=== PATIENT | male | born 1960 | race Caucasian/White ===

== ENCOUNTER → 2019-03-17 | Outpatient (RCR) | payer OTHER | LOC: M PT 02-20 14:03 | PROVIDERS: ATTEND Internal Medicine | DX: Z51.89 Encounter for other specified aftercare (principal); M43.16 Spondylolisthesis, lumbar region ==

== ENCOUNTER 2019-04-10 13:44 | Outpatient (RCR) | payer OTHER | END 2019-04-17 | LOC: M PT 13:44 | PROVIDERS: ATTEND Internal Medicine | DX: Z51.89 Encounter for other specified aftercare (principal); M43.17 Spondylolisthesis, lumbosacral region ==

== ENCOUNTER 2019-04-24 13:42 | Outpatient (RCR) | payer OTHER | END 2019-05-17 | LOC: M PT 13:42 | PROVIDERS: ATTEND Internal Medicine | DX: M43.17 Spondylolisthesis, lumbosacral region (principal) ==

== ENCOUNTER → 2020-09-10 | Outpatient (CLI) | payer OTHER, SELFPAY ==
[~2020-09-10] MED LIST: ASPI81TA26 PO; CLON1TAB17 PO; CLON1TAB8 PO; CYCL-707 PO; D31000TA PO; FLOM0.4C39 PO; GABA-283 PO; LOPI600T PO; MELO15TA28 PO; PARO20TA4 PO; PRAZ2CAP PO; ROSU40TA4 PO; SERO1TAB2 PO; SERO200T PO; SYMB16INH INH; SYNT25TA PO; TRAM50TA2 PO; VITMTA PO; ZALE5CA PO
== END ==
LOC: M LABSMTC 11:56
PROVIDERS: ATTEND Anesthesiology
DX: Z01.812 Encounter for preprocedural laboratory examination (principal); Z20.822 Contact with and (suspected) exposure to COVID-19

== ENCOUNTER → 2020-10-08 | Outpatient (CLI) | payer OTHER, SELFPAY | LOC: M LABSMTC 10:51 | PROVIDERS: ATTEND Anesthesiology | DX: Z01.818 Encounter for other preprocedural examination (principal); Z20.822 Contact with and (suspected) exposure to COVID-19 ==

== ENCOUNTER → 2020-10-22 | Outpatient (CLI) | payer OTHER, SELFPAY | LOC: M LABSMTC 11:50 | PROVIDERS: ATTEND Anesthesiology | DX: Z01.812 Encounter for preprocedural laboratory examination (principal); Z20.822 Contact with and (suspected) exposure to COVID-19 ==

== ENCOUNTER → 2020-11-19 | Outpatient (CLI) | payer OTHER, SELFPAY | LOC: M LABSMTC 10:33 | PROVIDERS: ATTEND Anesthesiology | DX: Z01.818 Encounter for other preprocedural examination (principal); Z20.822 Contact with and (suspected) exposure to COVID-19 ==

== ENCOUNTER → 2022-03-30 | Outpatient (CLI) | payer OTHER | LOC: M PLARAD 12:54 | PROVIDERS: ATTEND Internal Medicine | DX: M51.26 Other intervertebral disc displacement, lumbar region (principal); M99.53 Intervertebral disc stenosis of neural canal of lumbar region; M43.16 Spondylolisthesis, lumbar region ==

== ENCOUNTER → 2023-01-26 | Outpatient (CLI) | payer OTHER ==
[~2023-01-26] MED LIST changes: -GABA-283 PO; +GABA-284 PO
== END ==
LOC: M PAIN 13:00
PROVIDERS: ATTEND Nurse Practitioner Family
DX: M51.16 Intervertebral disc disorders with radiculopathy, lumbar region (principal); G25.81 Restless legs syndrome; F43.10 Post-traumatic stress disorder, unspecified; M54.2 Cervicalgia; K21.9 Gastro-esophageal reflux disease without esophagitis; F41.9 Anxiety disorder, unspecified; F42.9 Obsessive-compulsive disorder, unspecified; E78.00 Pure hypercholesterolemia, unspecified; F31.9 Bipolar disorder, unspecified; F32.A Depression, unspecified; Z79.82 Long term (current) use of aspirin; Z79.890 Hormone replacement therapy; Z79.899 Other long term (current) drug therapy

== ENCOUNTER 2023-03-20 14:58 | Emergency (ER) | payer MEDICARE ==
[~2023-03-20] VITALS: Ht 175.3 cm; Wt 78.1 kg
[2023-03-20 14:58] VITALS: BP 138/75; TEMP 99.1; O2SAT 95
[~2023-03-20 14:58] MED LIST changes: +HOLTER MONITOR XX
[2023-03-20 16:02] LABS: BASO % 0.5 % (0.0-1.0); EOS % 0.1 % (0.0-3.0); HEMATOCRIT 44.2 % (42.0-52.0); LYMPH # 1.1 10^3/uL (1.5-5.0); LYMPH % 13.4 % (24.0-44.0); MEAN CORPUSCULAR HGB CONC 33.9 g/dl (32.0-36.5); MEAN CORPUSCULAR VOLUME 91.3 fl (80.0-96.0); MONO # 0.5 10^3/uL (0.0-0.8); MONO % 5.7 % (2.0-8.0); NEUTROPHILS # 6.6 10^3/uL (1.5-8.5); NEUTROPHILS % 80.1 % (36.0-66.0); PLATELET COUNT, AUTOMATED 166 10^3/uL (150-450); RED BLOOD COUNT 4.84 10^6/uL (4.30-6.10); WHITE BLOOD COUNT 8.2 10^3/uL (4.0-10.0)
[2023-03-20 16:35] LABS: BLOOD UREA NITROGEN 28 MG/DL (9-23); CALCIUM LEVEL 9.5 MG/DL (8.3-10.6); CARBON DIOXIDE LEVEL 26 MMOL/L (20-31); CHLORIDE LEVEL 105 MMOL/L (98-107); CK-MB VALUE MASS < 1.0 NG/ML (<3.6); CPK CREATINE PHOSPHOKINASE 73 U/L (46-171); GLOMERULAR FILTRATION RATE > 60.0 (>49); GLUCOSE, FASTING 166 MG/DL (74-106); MB/CK RELATIVE INDEX 1.36 (< OR =4); POTASSIUM SERUM 3.9 MMOL/L (3.5-5.1); SODIUM LEVEL 139 MMOL/L (136-145)
[2023-03-20 18:27] LABS: CK-MB VALUE MASS 1.1 NG/ML (<3.6)
[2023-03-20 18:29] LABS: MB/CK RELATIVE INDEX 1.48 (< OR =4)
[2023-03-20 20:33] LABS: CK-MB VALUE MASS < 1.0 NG/ML (<3.6)
[2023-03-20 20:38] LABS: CPK CREATINE PHOSPHOKINASE 70 U/L (46-171); MB/CK RELATIVE INDEX 1.42 (< OR =4)
== END 2023-03-20 21:47 | disposition home or self-care (01) ==
LOC: M ED 14:58
DX: R00.2 Palpitations (principal); Z79.899 Other long term (current) drug therapy

== ENCOUNTER 2023-04-09 12:01 | Inpatient (IN) | payer MEDICARE, OTHER ==
[~2023-04-09] VITALS: Ht 175.3 cm; Wt 86.0 kg
[~2023-04-09 12:01] MED LIST changes: +BUPR-71 PO; +BUPR150T12 PO; +CELE0.09 PO; +ECOT81TA5 PO; +EZET10TA21 PO; +FAMO40TA3 PO; +FENO145T7 PO; +FLON1SPR; +JARD1TAB3 PO; +LEVO50CA PO; +MM S100C PO; +OMEP40CA4 PO; +PSYLPOW4 XX; +SILD100T PO; +SIME180C25 PO
[2023-04-09] MEDS ORDERED: LORazepam 2 MG TAB PO STA (13:46)
[2023-04-09] MEDS ORDERED: MED REC IN PROGRESS XX SCH (14:05)
[2023-04-09 14:34] LABS: BASO # 0.1 10^3/uL (0.0-0.2); EOS # 0.1 10^3/uL (0.0-0.5); HEMATOCRIT 44.2 % (42.0-52.0); HEMOGLOBIN 14.5 g/dl (13.5-17.5); LYMPH # 1.1 10^3/uL (1.5-5.0); LYMPH % 18.9 % (24.0-44.0); MEAN CORPUSCULAR HEMOGLOBIN 30.6 pg (27.0-33.0); MEAN CORPUSCULAR HGB CONC 32.8 g/dl (32.0-36.5); MEAN CORPUSCULAR VOLUME 93.2 fl (80.0-96.0); MONO # 0.8 10^3/uL (0.0-0.8); MONO % 13.4 % (2.0-8.0); NEUTROPHILS # 3.8 10^3/uL (1.5-8.5); NEUTROPHILS % 65.4 % (36.0-66.0); PLATELET COUNT, AUTOMATED 146 10^3/uL (150-450); RED BLOOD COUNT 4.74 10^6/uL (4.30-6.10); WHITE BLOOD COUNT 5.9 10^3/uL (4.0-10.0)
[2023-04-09] MEDS ORDERED: CLON2TAB14 PO (19:24)
[2023-04-09] MEDS ORDERED: HOME MED LIST COMPLETE! XX SCH (19:30)
[2023-04-09] MEDS ORDERED: traZODone 50 MG TAB PO PRN (22:05)
[2023-04-09] MEDS ORDERED: MOM 30ML SUSPENSION UDC PO PRN (22:05)
[2023-04-09] MEDS ORDERED: IBUPROFEN 400MG TAB PO PRN (22:05)
[2023-04-09] MEDS ORDERED: MAALOX 30 ML SUSP *UDC PO PRN (22:05)
[2023-04-09] MEDS ORDERED: FAMOTIDINE 20 MG TAB PO PRN ×2 (22:10→22:30)
[2023-04-09] MEDS ORDERED: CYCLOBENZAPRINE 10MG TABLET PO PRN ×2 (22:10→22:30)
[2023-04-09] MEDS ORDERED: OMEPRAZOLE 20MG CAP PO PRN ×2 (22:10→22:30)
[2023-04-09] MEDS ORDERED: traMADol 50 MG TAB PO PRN (22:10)
[2023-04-09] MEDS ORDERED: SYMBICORT 160/4.5MCG INHALER 6GM INH ONE (23:45)
[2023-04-09] MEDS ORDERED: ROSUVASTATIN 10 MG TAB (CRESTOR) PO ONE (23:45)
[2023-04-09] MEDS ORDERED: MULTIVITAMINS/MINERALS THERAP 1 TAB PO ONE (23:45)
[2023-04-09] MEDS ORDERED: GABAPENTIN 400MG CAP PO ONE (23:45)
[2023-04-09] MEDS ORDERED: DOCUSATE SODIUM 100MG CAPSULE PO ONE (23:45)
[2023-04-09] MEDS ORDERED: clonazePAM 1 MG TAB PO ONE (23:45)
[2023-04-10] MEDS: POLYVINYL ALCOHOL OPHTH SOLN 15ML (LIQUITEARS) OU PRN ×4 (00:46→23:43)
[2023-04-10 01:08] VITALS: BP 135/69; TEMP 98; O2SAT 97
[2023-04-10] MEDS: LEVOTHYROXINE 50MCG TABLET (0.05MG) PO SCH (05:55)
[2023-04-10] MEDS ORDERED: LEVOTHYROXINE 50MCG TABLET (0.05MG) PO SCH (06:00)
[2023-04-10 06:38] VITALS: BP 118/65; TEMP 97.8; O2SAT 97
[2023-04-10 08:28] LABS: AST/SGOT 31 U/L (5-40); BLOOD UREA NITROGEN 28 MG/DL (7-21); CALCIUM LEVEL 10.3 MG/DL (8.8-10.2); CARBON DIOXIDE LEVEL 28 MEQ/L (22-30); CHLORIDE LEVEL 103 MEQ/L (98-107); GLOMERULAR FILTRATION RATE > 60.0 (>49); GLUCOSE, FASTING 116 MG/DL; POTASSIUM SERUM 4.3 MEQ/L (3.6-5.0); SODIUM LEVEL 140 MEQ/L (134-153)
[2023-04-10 08:29] LABS: ALBUMIN 4.1 G/DL (3.9-5.0); ALKALINE PHOSPHATASE 57 U/L (40-129); ALT/SGPT 31 U/L (1-41); BILIRUBIN,DIRECT < 0.2 MG/DL (0.1-0.4); BILIRUBIN,TOTAL < 0.7 MG/DL (0.2-1.3); ETHYL ALCOHOL (ETHANOL) 0.01 % (0.00-0.01); TOTAL PROTEIN 6.6 G/DL (6.3-8.2)
[2023-04-10 08:30] LABS: THYROID STIMULATING HORMONE 2.51 UIU/ML (0.47-5.01)
[2023-04-10 08:32] LABS: AMPHETAMINES LEVEL URINE NEGATIVE (NEGATIVE); BARBITURATES URINE NEGATIVE (NEGATIVE); BENZODIAZEPINES URINE POSITIVE (NEGATIVE); CANNABINOIDS URINE NEGATIVE (NEGATIVE); COCAINE METABOLITE URINE NEGATIVE (NEGATIVE); OPIATES URINE NEGATIVE (NEGATIVE); PHENCYCLIDINE URINE NEGATIVE (NEGATIVE)
[2023-04-10] MEDS: FLUTICASONE PROP 0.05% NASAL SPRAY 16 GM (FLONASE) SCH (08:55)
[2023-04-10] MEDS: ASPIRIN 81MG ENTERIC TABLET PO SCH (08:56)
[2023-04-10] MEDS: FENOFIBRATE 145MG TABLET (TRICOR) PO SCH (08:56)
[2023-04-10] MEDS: MULTIVITAMINS/MINERALS THERAP 1 TAB PO SCH ×2 (08:57→20:08)
[2023-04-10] MEDS: traMADol 50 MG TAB PO PRN (08:58)
[2023-04-10] MEDS: buPROPion **SR TABLET** (ZYBAN) 150MG PO SCH (08:59)
[2023-04-10] MEDS: EZETIMIBE 10MG TABLET (ZETIA) PO SCH (08:59)
[2023-04-10] MEDS: TAMSULOSIN 0.4 MG CAP PO SCH (08:59)
[2023-04-10] MEDS ORDERED: ASPIRIN 81MG ENTERIC TABLET PO SCH (09:00)
[2023-04-10] MEDS ORDERED: DOCUSATE SODIUM 100MG CAPSULE PO SCH ×2 (09:00)
[2023-04-10] MEDS ORDERED: buPROPion **SR TABLET** (ZYBAN) 150MG PO SCH (09:00)
[2023-04-10] MEDS ORDERED: SYMBICORT 160/4.5MCG INHALER 6GM INH SCH (09:00)
[2023-04-10] MEDS ORDERED: FENOFIBRATE 145MG TABLET (TRICOR) PO SCH (09:00)
[2023-04-10] MEDS ORDERED: TAMSULOSIN 0.4 MG CAP PO SCH (09:00)
[2023-04-10] MEDS ORDERED: MULTIVITAMINS/MINERALS THERAP 1 TAB PO SCH (09:00)
[2023-04-10] MEDS ORDERED: EZETIMIBE 10MG TABLET (ZETIA) PO SCH (09:00)
[2023-04-10] MEDS ORDERED: FLUTICASONE PROP 0.05% NASAL SPRAY 16 GM (FLONASE) SCH (09:00)
[2023-04-10] MEDS: SYMBICORT 160/4.5MCG INHALER 6GM INH SCH ×2 (09:01→20:07)
[2023-04-10] MEDS: diphenhydrAMINE 25MG CAP PO PRN ×2 (09:08→23:42)
[2023-04-10] MEDS: MIRALAX *UNIT DOSE* 17GM PACKET PO SCH (12:37)
[2023-04-10] MEDS: ALBUTEROL 90 MCG/ACT 8GM HFA INHALER INH PRN (12:43)
[2023-04-10] MEDS: DAPAGLIFLOZIN PROPANEDIOL 10MG TABLET (FARXIGA) PO SCH (13:03)
[2023-04-10 16:20] VITALS: BP 117/65; TEMP 98.4; O2SAT 96
[2023-04-10] MEDS: GABAPENTIN 400MG CAP PO SCH (20:08)
[2023-04-10] MEDS: ROSUVASTATIN 10 MG TAB (CRESTOR) PO SCH (20:08)
[2023-04-10] MEDS: SENOKOT S TAB PO SCH (20:09)
[2023-04-10] MEDS: clonazePAM 1 MG TAB PO SCH (20:09)
[2023-04-10] MEDS: ACETAMINOPHEN TAB 650MG DOSE (2X325MG) PO PRN (20:30)
[2023-04-10] MEDS ORDERED: clonazePAM 1 MG TAB PO SCH (21:00)
[2023-04-10] MEDS ORDERED: ROSUVASTATIN 10 MG TAB (CRESTOR) PO SCH (21:00)
[2023-04-10] MEDS ORDERED: GABAPENTIN 400MG CAP PO SCH (21:00)
[2023-04-11] MEDS: LEVOTHYROXINE 50MCG TABLET (0.05MG) PO SCH (05:38)
[2023-04-11 06:45] VITALS: BP 110/66; TEMP 97.2; O2SAT 95
[2023-04-11 07:37] LABS: CHOLESTEROL RISK RATIO 2.18 (<5); HDL CHOLESTEROL 39.3 MG/DL (>40); LDL CHOLESTEROL 35.9 MG/DL (<100); NON-HDL-C 46.7 MG/DL
[2023-04-11] MEDS: MULTIVITAMINS/MINERALS THERAP 1 TAB PO SCH ×2 (08:25→21:21)
[2023-04-11] MEDS: buPROPion **SR TABLET** (ZYBAN) 150MG PO SCH (08:25)
[2023-04-11] MEDS: ACETAMINOPHEN TAB 650MG DOSE (2X325MG) PO PRN ×2 (08:26→21:21)
[2023-04-11] MEDS: DAPAGLIFLOZIN PROPANEDIOL 10MG TABLET (FARXIGA) PO SCH (08:26)
[2023-04-11] MEDS: FENOFIBRATE 145MG TABLET (TRICOR) PO SCH (08:26)
[2023-04-11] MEDS: ASPIRIN 81MG ENTERIC TABLET PO SCH (08:26)
[2023-04-11] MEDS: EZETIMIBE 10MG TABLET (ZETIA) PO SCH (08:26)
[2023-04-11] MEDS: POLYVINYL ALCOHOL OPHTH SOLN 15ML (LIQUITEARS) OU PRN ×2 (08:27→21:20)
[2023-04-11] MEDS: QUEtiapine FUMARATE 100 MG TAB PO SCH ×2 (08:27→21:21)
[2023-04-11] MEDS: TAMSULOSIN 0.4 MG CAP PO SCH (08:27)
[2023-04-11] MEDS: FLUTICASONE PROP 0.05% NASAL SPRAY 16 GM (FLONASE) SCH (08:27)
[2023-04-11] MEDS: SYMBICORT 160/4.5MCG INHALER 6GM INH SCH ×2 (08:28→21:20)
[2023-04-11] MEDS: SENOKOT S TAB PO SCH (08:28)
[2023-04-11] MEDS: MIRALAX *UNIT DOSE* 17GM PACKET PO SCH (08:28)
[2023-04-11] MEDS: SENOKOT S TAB PO PRN (12:24)
[2023-04-11 16:29] VITALS: BP 124/70; TEMP 98.3; O2SAT 94
[2023-04-11] MEDS: BENZONATATE 100MG CAPSULE PO PRN (16:45)
[2023-04-11] MEDS: clonazePAM 1 MG TAB PO SCH (21:20)
[2023-04-11] MEDS: GABAPENTIN 400MG CAP PO SCH (21:20)
[2023-04-11] MEDS: diphenhydrAMINE 25MG CAP PO PRN (21:21)
[2023-04-11] MEDS: ROSUVASTATIN 10 MG TAB (CRESTOR) PO SCH (21:21)
[2023-04-11] MEDS ORDERED: QUEtiapine FUMARATE 100 MG TAB PO ONE (21:50)
[2023-04-12] MEDS: LEVOTHYROXINE 50MCG TABLET (0.05MG) PO SCH (05:59)
[2023-04-12 06:17] VITALS: BP 122/77; TEMP 97.6; O2SAT 95
[2023-04-12] MEDS: SYMBICORT 160/4.5MCG INHALER 6GM INH SCH ×2 (08:39→21:38)
[2023-04-12] MEDS: TAMSULOSIN 0.4 MG CAP PO SCH (08:39)
[2023-04-12] MEDS: QUEtiapine FUMARATE 100 MG TAB PO SCH (08:39)
[2023-04-12] MEDS: ASPIRIN 81MG ENTERIC TABLET PO SCH (08:39)
[2023-04-12] MEDS: buPROPion **SR TABLET** (ZYBAN) 150MG PO SCH (08:39)
[2023-04-12] MEDS: EZETIMIBE 10MG TABLET (ZETIA) PO SCH (08:39)
[2023-04-12] MEDS: FENOFIBRATE 145MG TABLET (TRICOR) PO SCH (08:39)
[2023-04-12] MEDS: DAPAGLIFLOZIN PROPANEDIOL 10MG TABLET (FARXIGA) PO SCH (08:39)
[2023-04-12] MEDS: MULTIVITAMINS/MINERALS THERAP 1 TAB PO SCH ×2 (08:39→21:35)
[2023-04-12 08:40] LABS: SALICYLATE LEVEL < 3.0 MG/DL (2.0-20.0)
[2023-04-12] MEDS: FLUTICASONE PROP 0.05% NASAL SPRAY 16 GM (FLONASE) SCH (08:40)
[2023-04-12] MEDS: MIRALAX *UNIT DOSE* 17GM PACKET PO SCH (08:40)
[2023-04-12] MEDS: SENOKOT S TAB PO PRN (08:42)
[2023-04-12] MEDS: POLYVINYL ALCOHOL OPHTH SOLN 15ML (LIQUITEARS) OU PRN ×2 (08:45→21:41)
[2023-04-12] MEDS: ACETAMINOPHEN TAB 650MG DOSE (2X325MG) PO PRN (08:46)
[2023-04-12] MEDS: BENZONATATE 100MG CAPSULE PO PRN ×2 (08:50→17:06)
[2023-04-12] MEDS: traMADol 50 MG TAB PO PRN (17:07)
[2023-04-12 18:33] VITALS: BP 129/79; TEMP 97.1
[2023-04-12] MEDS: clonazePAM 1 MG TAB PO SCH (21:35)
[2023-04-12] MEDS: GABAPENTIN 400MG CAP PO SCH (21:35)
[2023-04-12] MEDS: QUEtiapine FUMARATE 200 MG TAB PO SCH (21:35)
[2023-04-12] MEDS: ROSUVASTATIN 10 MG TAB (CRESTOR) PO SCH (21:36)
[2023-04-13 06:02] VITALS: BP 112/67; TEMP 98.2; O2SAT 95
[2023-04-13] MEDS: LEVOTHYROXINE 50MCG TABLET (0.05MG) PO SCH (06:02)
[2023-04-13] MEDS: FLUTICASONE PROP 0.05% NASAL SPRAY 16 GM (FLONASE) SCH (08:33)
[2023-04-13] MEDS: SYMBICORT 160/4.5MCG INHALER 6GM INH SCH ×2 (08:33→20:42)
[2023-04-13] MEDS: MIRALAX *UNIT DOSE* 17GM PACKET PO SCH (08:34)
[2023-04-13] MEDS: EZETIMIBE 10MG TABLET (ZETIA) PO SCH (08:35)
[2023-04-13] MEDS: ASPIRIN 81MG ENTERIC TABLET PO SCH (08:35)
[2023-04-13] MEDS: FENOFIBRATE 145MG TABLET (TRICOR) PO SCH (08:35)
[2023-04-13] MEDS: DAPAGLIFLOZIN PROPANEDIOL 10MG TABLET (FARXIGA) PO SCH (08:35)
[2023-04-13] MEDS: MULTIVITAMINS/MINERALS THERAP 1 TAB PO SCH ×2 (08:35→20:43)
[2023-04-13] MEDS: buPROPion **SR TABLET** (ZYBAN) 150MG PO SCH (08:35)
[2023-04-13] MEDS: TAMSULOSIN 0.4 MG CAP PO SCH (08:36)
[2023-04-13] MEDS: POLYVINYL ALCOHOL OPHTH SOLN 15ML (LIQUITEARS) OU PRN ×2 (08:38→20:48)
[2023-04-13] MEDS: BENZONATATE 100MG CAPSULE PO PRN (08:38)
[2023-04-13] MEDS: ACETAMINOPHEN TAB 650MG DOSE (2X325MG) PO PRN (08:43)
[2023-04-13] MEDS ORDERED: QUEtiapine FUMARATE 100 MG TAB PO SCH (09:00)
[2023-04-13] MEDS: ALBUTEROL 90 MCG/ACT 8GM HFA INHALER INH PRN (13:16)
[2023-04-13 16:45] VITALS: BP 140/72; TEMP 98.2; O2SAT 93
[2023-04-13] MEDS: ROSUVASTATIN 10 MG TAB (CRESTOR) PO SCH (20:43)
[2023-04-13] MEDS: clonazePAM 1 MG TAB PO SCH (20:43)
[2023-04-13] MEDS: QUEtiapine FUMARATE 200 MG TAB PO SCH (20:43)
[2023-04-13] MEDS: GABAPENTIN 400MG CAP PO SCH (20:43)
[2023-04-14] MEDS: LEVOTHYROXINE 50MCG TABLET (0.05MG) PO SCH (05:45)
[2023-04-14 06:34] VITALS: BP 103/65; TEMP 97.8; O2SAT 96
[2023-04-14] MEDS: SYMBICORT 160/4.5MCG INHALER 6GM INH SCH ×2 (08:46→21:25)
[2023-04-14] MEDS: MIRALAX *UNIT DOSE* 17GM PACKET PO SCH (08:47)
[2023-04-14] MEDS: EZETIMIBE 10MG TABLET (ZETIA) PO SCH (08:47)
[2023-04-14] MEDS: POLYVINYL ALCOHOL OPHTH SOLN 15ML (LIQUITEARS) OU PRN ×2 (08:47→21:23)
[2023-04-14] MEDS: ASPIRIN 81MG ENTERIC TABLET PO SCH (08:47)
[2023-04-14] MEDS: FLUTICASONE PROP 0.05% NASAL SPRAY 16 GM (FLONASE) SCH (08:47)
[2023-04-14] MEDS: FENOFIBRATE 145MG TABLET (TRICOR) PO SCH (08:47)
[2023-04-14] MEDS: DAPAGLIFLOZIN PROPANEDIOL 10MG TABLET (FARXIGA) PO SCH (08:48)
[2023-04-14] MEDS: TAMSULOSIN 0.4 MG CAP PO SCH (08:48)
[2023-04-14] MEDS: MULTIVITAMINS/MINERALS THERAP 1 TAB PO SCH ×2 (08:48→21:21)
[2023-04-14] MEDS: buPROPion **SR TABLET** (ZYBAN) 150MG PO SCH (08:48)
[2023-04-14] MEDS: SENOKOT S TAB PO PRN (08:48)
[2023-04-14] MEDS: traMADol 50 MG TAB PO PRN (08:56)
[2023-04-14 12:01] VITALS: BP 103/65; TEMP 97.8; O2SAT 96
[2023-04-14 16:23] VITALS: BP 131/71; TEMP 98; O2SAT 95
[2023-04-14] MEDS: QUEtiapine FUMARATE 200 MG TAB PO SCH (21:21)
[2023-04-14] MEDS: diphenhydrAMINE 25MG CAP PO PRN (21:22)
[2023-04-14] MEDS: ACETAMINOPHEN TAB 650MG DOSE (2X325MG) PO PRN (21:22)
[2023-04-14] MEDS: ROSUVASTATIN 10 MG TAB (CRESTOR) PO SCH (21:23)
[2023-04-14] MEDS: clonazePAM 1 MG TAB PO SCH (21:23)
[2023-04-14] MEDS: GABAPENTIN 400MG CAP PO SCH (21:23)
[2023-04-15] MEDS: LEVOTHYROXINE 50MCG TABLET (0.05MG) PO SCH (05:46)
[2023-04-15 07:08] VITALS: BP 142/85; TEMP 97; O2SAT 94
[2023-04-15] MEDS: MIRALAX *UNIT DOSE* 17GM PACKET PO SCH (08:14)
[2023-04-15] MEDS: FLUTICASONE PROP 0.05% NASAL SPRAY 16 GM (FLONASE) SCH (08:15)
[2023-04-15] MEDS: SENOKOT S TAB PO PRN (08:15)
[2023-04-15] MEDS: TAMSULOSIN 0.4 MG CAP PO SCH (08:16)
[2023-04-15] MEDS: SYMBICORT 160/4.5MCG INHALER 6GM INH SCH ×2 (08:16→21:34)
[2023-04-15] MEDS: buPROPion **SR TABLET** (ZYBAN) 150MG PO SCH (08:16)
[2023-04-15] MEDS: MULTIVITAMINS/MINERALS THERAP 1 TAB PO SCH ×2 (08:16→21:31)
[2023-04-15] MEDS: ASPIRIN 81MG ENTERIC TABLET PO SCH (08:16)
[2023-04-15] MEDS: EZETIMIBE 10MG TABLET (ZETIA) PO SCH (08:17)
[2023-04-15] MEDS: DAPAGLIFLOZIN PROPANEDIOL 10MG TABLET (FARXIGA) PO SCH (08:17)
[2023-04-15] MEDS: FENOFIBRATE 145MG TABLET (TRICOR) PO SCH (08:17)
[2023-04-15] MEDS: ACETAMINOPHEN TAB 650MG DOSE (2X325MG) PO PRN (08:19)
[2023-04-15 11:21] VITALS: BP 142/85; TEMP 97; O2SAT 94
[2023-04-15 16:07] VITALS: BP 122/63; TEMP 98.4; O2SAT 94
[2023-04-15] MEDS: QUEtiapine FUMARATE 200 MG TAB PO SCH ×2 (21:00→23:13)
[2023-04-15] MEDS: GABAPENTIN 400MG CAP PO SCH (21:31)
[2023-04-15] MEDS: clonazePAM 1 MG TAB PO SCH (21:31)
[2023-04-15] MEDS: ROSUVASTATIN 10 MG TAB (CRESTOR) PO SCH (21:32)
[2023-04-15] MEDS: POLYVINYL ALCOHOL OPHTH SOLN 15ML (LIQUITEARS) OU PRN (21:34)
[2023-04-15] MEDS: diphenhydrAMINE 25MG CAP PO PRN (21:36)
[2023-04-15] MEDS: traMADol 50 MG TAB PO PRN (22:31)
[2023-04-16] MEDS: LEVOTHYROXINE 50MCG TABLET (0.05MG) PO SCH (05:49)
[2023-04-16 06:41] VITALS: BP 105/55; TEMP 97.4; O2SAT 95
[2023-04-16] MEDS: MIRALAX *UNIT DOSE* 17GM PACKET PO SCH (09:00)
[2023-04-16] MEDS: DAPAGLIFLOZIN PROPANEDIOL 10MG TABLET (FARXIGA) PO SCH (09:29)
[2023-04-16] MEDS: ASPIRIN 81MG ENTERIC TABLET PO SCH (09:29)
[2023-04-16] MEDS: FLUTICASONE PROP 0.05% NASAL SPRAY 16 GM (FLONASE) SCH (09:29)
[2023-04-16] MEDS: MULTIVITAMINS/MINERALS THERAP 1 TAB PO SCH (09:29)
[2023-04-16] MEDS: FENOFIBRATE 145MG TABLET (TRICOR) PO SCH (09:29)
[2023-04-16] MEDS: EZETIMIBE 10MG TABLET (ZETIA) PO SCH (09:29)
[2023-04-16] MEDS: TAMSULOSIN 0.4 MG CAP PO SCH (09:29)
[2023-04-16] MEDS: buPROPion **SR TABLET** (ZYBAN) 150MG PO SCH (09:29)
[2023-04-16] MEDS: traMADol 50 MG TAB PO PRN (09:31)
[2023-04-16] MEDS: SYMBICORT 160/4.5MCG INHALER 6GM INH SCH (09:32)
[2023-04-16] MEDS ORDERED: QUET200T2 PO (12:25)
[2023-04-16] MEDS ORDERED: ARTIDRO2 OU (12:25)
[2023-04-16] MEDS ORDERED: VITMTA PO (12:25)
[2023-04-16] MEDS ORDERED: MIRA1POW3 PO (12:25)
== END 2023-04-16 14:09 | disposition home or self-care (01) | DRG 885 ==
LOC: M ED 12:01 → M ED INP 22:04 → M PSY 22:56
PROVIDERS: ADMIT Student in an Organized Health Care Education/Training Program; ATTEND Student in an Organized Health Care Education/Training Program
DX: F31.9 Bipolar disorder, unspecified (principal); R45.851 Suicidal ideations; F43.10 Post-traumatic stress disorder, unspecified; F41.9 Anxiety disorder, unspecified; F42.9 Obsessive-compulsive disorder, unspecified; E03.9 Hypothyroidism, unspecified; K59.00 Constipation, unspecified; E11.9 Type 2 diabetes mellitus without complications; J45.909 Unspecified asthma, uncomplicated; K21.9 Gastro-esophageal reflux disease without esophagitis; E78.5 Hyperlipidemia, unspecified; N40.1 Benign prostatic hyperplasia with lower urinary tract symptoms; M51.16 Intervertebral disc disorders with radiculopathy, lumbar region; Z62.810 Personal history of physical and sexual abuse in childhood; Z79.82 Long term (current) use of aspirin; Z79.890 Hormone replacement therapy; Z79.899 Other long term (current) drug therapy; Z20.822 Contact with and (suspected) exposure to COVID-19

== ENCOUNTER 2023-04-20 08:15 | Day surgery (SDC) | payer OTHER, MEDICARE ==
[~2023-04-20] VITALS: Ht 175.3 cm; Wt 78.7 kg
[~2023-04-20 08:15] MED LIST changes: +ARTIDRO2 OU; +CLON2TAB14 PO; +MIRA1POW3 PO; +NS 1,000 ML IV ONE; +QUET200T2 PO; +fentaNYL 100 MCG/2 ML INJECTION As Ordered ONE; +propofoL 200 MG/20 ML VIAL As Ordered ONE
[2023-04-20 09:44] VITALS: TEMP 97.7
[2023-04-20 10:05] VITALS: BP 127/73; O2SAT 94
== END 2023-04-20 10:10 | disposition home or self-care (01) ==
LOC: M OPP 08:15
PROVIDERS: ATTEND Surgery
DX: Z12.11 Encounter for screening for malignant neoplasm of colon (principal); K64.0 First degree hemorrhoids; K29.70 Gastritis, unspecified, without bleeding; E11.9 Type 2 diabetes mellitus without complications; Z79.02 Long term (current) use of antithrombotics/antiplatelets; Z79.52 Long term (current) use of systemic steroids; Z79.84 Long term (current) use of oral hypoglycemic drugs; Z79.891 Long term (current) use of opiate analgesic; Z79.899 Other long term (current) drug therapy
CPT/HCPCS: 45378; 88305; J3010

== ENCOUNTER 2023-05-12 15:47 | Emergency (ER) | payer MEDICARE, OTHER ==
[~2023-05-12] VITALS: Ht 175.3 cm; Wt 78.6 kg
[~2023-05-12 15:47] MED LIST changes: -NS 1,000 ML IV ONE; -fentaNYL 100 MCG/2 ML INJECTION As Ordered ONE; -propofoL 200 MG/20 ML VIAL As Ordered ONE
[2023-05-12 19:05] VITALS: BP 125/71; TEMP 98; O2SAT 97
== END 2023-05-12 19:05 | disposition home or self-care (01) ==
LOC: M ED 15:47
DX: G47.00 Insomnia, unspecified (principal); F32.A Depression, unspecified; F31.9 Bipolar disorder, unspecified; F43.10 Post-traumatic stress disorder, unspecified; F42.9 Obsessive-compulsive disorder, unspecified; E03.9 Hypothyroidism, unspecified; N40.0 Benign prostatic hyperplasia without lower urinary tract symptoms; J45.909 Unspecified asthma, uncomplicated

== ENCOUNTER 2023-05-14 10:51 | Inpatient (IN) | payer MEDICARE, OTHER ==
[~2023-05-14] VITALS: Ht 175.3 cm; Wt 78.6 kg
[2023-05-14] MEDS ORDERED: MED REC IN PROGRESS XX SCH (14:40)
[2023-05-14] MEDS ORDERED: FLUT1BLS3 INH (15:37)
[2023-05-14] MEDS ORDERED: SERO200T PO (15:37)
[2023-05-14] MEDS ORDERED: ARTIDRO4 OU (15:37)
[2023-05-14] MEDS ORDERED: META28.32 PO (15:37)
[2023-05-14] MEDS ORDERED: SENN1TAB94 PO (15:37)
[2023-05-14] MEDS ORDERED: DEXT1TAB19 PO (16:44)
[2023-05-14] MEDS ORDERED: SENN-23 PO (16:45)
[2023-05-14] MEDS ORDERED: SENN1TAB41 PO (16:45)
[2023-05-14] MEDS ORDERED: HOME MED LIST COMPLETE! XX SCH (16:50)
[2023-05-14] MEDS ORDERED: MAALOX 30 ML SUSP *UDC PO PRN (17:00)
[2023-05-14] MEDS ORDERED: CYCLOBENZAPRINE 10MG TABLET PO PRN (17:00)
[2023-05-14] MEDS ORDERED: OMEPRAZOLE 20MG CAP PO PRN (17:00)
[2023-05-14] MEDS ORDERED: traZODone 50 MG TAB PO PRN (17:00)
[2023-05-14] MEDS ORDERED: IBUPROFEN 400MG TAB PO PRN (17:00)
[2023-05-14] MEDS ORDERED: MOM 30ML SUSPENSION UDC PO PRN (17:00)
[2023-05-14] MEDS ORDERED: FAMOTIDINE 20 MG TAB PO PRN (17:00)
[2023-05-14] MEDS ORDERED: diphenhydrAMINE 25MG CAP PO PRN (17:00)
[2023-05-14] MEDS ORDERED: traMADol 50 MG TAB PO PRN (17:00)
[2023-05-14 17:46] LABS: HEMATOCRIT 46.7 % (42.0-52.0); HEMOGLOBIN 15.3 g/dl (13.5-17.5); MEAN CORPUSCULAR HEMOGLOBIN 30.6 pg (27.0-33.0); MEAN CORPUSCULAR HGB CONC 32.8 g/dl (32.0-36.5); MEAN CORPUSCULAR VOLUME 93.4 fl (80.0-96.0); PLATELET COUNT, AUTOMATED 196 10^3/uL (150-450); WHITE BLOOD COUNT 5.7 10^3/uL (4.0-10.0)
[2023-05-14 18:11] LABS: AMPHETAMINES LEVEL URINE NEGATIVE (NEGATIVE); BARBITURATES URINE NEGATIVE (NEGATIVE); CANNABINOIDS URINE NEGATIVE (NEGATIVE); COCAINE METABOLITE URINE NEGATIVE (NEGATIVE); METHADONE URINE NEGATIVE (NEGATIVE); OPIATES URINE NEGATIVE (NEGATIVE); PHENCYCLIDINE URINE NEGATIVE (NEGATIVE)
[2023-05-14 18:12] LABS: ETHYL ALCOHOL (ETHANOL) < 0.003 % (0.000-0.010)
[2023-05-14 18:13] LABS: SALICYLATE LEVEL < 3.0 MG/DL (<30)
[2023-05-14 18:14] LABS: ALBUMIN 4.2 G/DL (3.2-5.2); ALKALINE PHOSPHATASE 62 U/L (46-116); ALT/SGPT 28 U/L (7.0-40); AST/SGOT 21 U/L (<34); BENZODIAZEPINES URINE POSITIVE (NEGATIVE); BILIRUBIN,DIRECT 0.1 MG/DL (<0.4); BILIRUBIN,TOTAL 0.3 MG/DL (0.3-1.2); BLOOD UREA NITROGEN 29 MG/DL (9-23); CALCIUM LEVEL 9.8 MG/DL (8.3-10.6); CARBON DIOXIDE LEVEL 28 MMOL/L (20-31); CHLORIDE LEVEL 106 MMOL/L (98-107); CREATININE FOR GFR 0.87 MG/DL (0.70-1.30); GLOMERULAR FILTRATION RATE > 60.0 (>49); GLUCOSE, FASTING 97 MG/DL (74-106); POTASSIUM SERUM 4.1 MMOL/L (3.5-5.1); SODIUM LEVEL 141 MMOL/L (136-145); TOTAL PROTEIN 6.9 G/DL (5.7-8.2)
[2023-05-14 18:16] LABS: THYROID STIMULATING HORMONE 2.086 uIU/ML (0.55-4.78)
[2023-05-14] MEDS: GABAPENTIN 400MG CAP PO SCH (20:35)
[2023-05-14] MEDS: ROSUVASTATIN 10 MG TAB (CRESTOR) PO SCH (20:35)
[2023-05-14] MEDS: SENOKOT S TAB PO SCH (20:36)
[2023-05-14] MEDS: clonazePAM 1 MG TAB PO SCH (20:37)
[2023-05-14] MEDS: MULTIVITAMINS/MINERALS THERAP 1 TAB PO SCH (20:37)
[2023-05-14] MEDS ORDERED: QUEtiapine FUMARATE 200 MG TAB PO SCH (21:00)
[2023-05-14] MEDS: ACETAMINOPHEN TAB 650MG DOSE (2X325MG) PO PRN ×2 (21:09→23:52)
[2023-05-14 23:30] VITALS: BP 136/64; TEMP 97.6; O2SAT 95
[2023-05-15] MEDS: LEVOTHYROXINE 50MCG TABLET (0.05MG) PO SCH (05:31)
[2023-05-15 06:43] VITALS: BP 110/68; TEMP 98.2; O2SAT 96
[2023-05-15] MEDS: ACETAMINOPHEN TAB 650MG DOSE (2X325MG) PO PRN ×2 (06:47→20:29)
[2023-05-15] MEDS: MULTIVITAMINS/MINERALS THERAP 1 TAB PO SCH ×2 (08:46→20:07)
[2023-05-15] MEDS: FLUTICASONE PROP 0.05% NASAL SPRAY 16 GM (FLONASE) SCH (08:47)
[2023-05-15] MEDS: TAMSULOSIN 0.4 MG CAP PO SCH (08:47)
[2023-05-15] MEDS: FENOFIBRATE 145MG TABLET (TRICOR) PO SCH (08:47)
[2023-05-15] MEDS: ASPIRIN 81MG ENTERIC TABLET PO SCH (08:47)
[2023-05-15] MEDS: VITAMIN D 1,000 INTERNATIONAL UNITS TABLET PO SCH (08:47)
[2023-05-15] MEDS: SENOKOT S TAB PO PRN (08:51)
[2023-05-15] MEDS: EZETIMIBE 10MG TABLET (ZETIA) PO SCH (10:55)
[2023-05-15] MEDS: OLANZapine 5 MG TAB PO SCH (10:55)
[2023-05-15] MEDS: DIVALPROEX 125 MG TAB PO SCH ×2 (11:37→20:07)
[2023-05-15] MEDS ORDERED: DEXTROSE 50% 50ML SYRINGE IV PRN (15:05)
[2023-05-15] MEDS ORDERED: GLUCAGON INJ 1MG VIAL SC PRN (15:05)
[2023-05-15] MEDS ORDERED: GLUCOSE 4GM CHEW TABLET PO PRN (15:05)
[2023-05-15] MEDS: INSULIN LISPRO (NovoLOG) PER UNIT SC SCH (17:30)
[2023-05-15] MEDS: MIRALAX *UNIT DOSE* 17GM PACKET PO PRN (18:12)
[2023-05-15 18:55] VITALS: BP 113/59; TEMP 97.7
[2023-05-15] MEDS: clonazePAM 1 MG TAB PO SCH (20:07)
[2023-05-15] MEDS: GABAPENTIN 400MG CAP PO SCH (20:07)
[2023-05-15] MEDS: SENOKOT S TAB PO SCH (20:07)
[2023-05-15] MEDS: ROSUVASTATIN 10 MG TAB (CRESTOR) PO SCH (20:08)
[2023-05-15 20:26] LABS: HEMOGLOBIN A1c 5.6 % (4.0-6.0)
[2023-05-15] MEDS ORDERED: QUEtiapine FUMARATE 100 MG TAB PO SCH (21:00)
[2023-05-15] MEDS ORDERED: INSULIN LISPRO (NovoLOG) PER UNIT SC SCH (21:00)
[2023-05-16] MEDS: LEVOTHYROXINE 50MCG TABLET (0.05MG) PO SCH (05:31)
[2023-05-16 06:25] VITALS: BP 115/63; TEMP 98.4; O2SAT 94
[2023-05-16] MEDS: INSULIN LISPRO (NovoLOG) PER UNIT SC SCH (06:28)
[2023-05-16 06:52] LABS: CHOLESTEROL RISK RATIO 1.93 (<5); HDL CHOLESTEROL 46.6 MG/DL (>40); LDL CHOLESTEROL 34.4 MG/DL (<100); NON-HDL-C 43.4 MG/DL
[2023-05-16] MEDS: FLUTICASONE PROP 0.05% NASAL SPRAY 16 GM (FLONASE) SCH (08:19)
[2023-05-16] MEDS: MULTIVITAMINS/MINERALS THERAP 1 TAB PO SCH ×2 (08:19→20:06)
[2023-05-16] MEDS: VITAMIN D 1,000 INTERNATIONAL UNITS TABLET PO SCH (08:19)
[2023-05-16] MEDS: ASPIRIN 81MG ENTERIC TABLET PO SCH (08:19)
[2023-05-16] MEDS: FENOFIBRATE 145MG TABLET (TRICOR) PO SCH (08:20)
[2023-05-16] MEDS: OLANZapine 5 MG TAB PO SCH (08:20)
[2023-05-16] MEDS: DIVALPROEX 125 MG TAB PO SCH ×2 (08:20→20:05)
[2023-05-16] MEDS: TAMSULOSIN 0.4 MG CAP PO SCH (08:20)
[2023-05-16] MEDS: SENOKOT S TAB PO PRN (08:51)
[2023-05-16] MEDS ORDERED: DAPAGLIFLOZIN PROPANEDIOL 10MG TABLET (FARXIGA) PO SCH (09:00)
[2023-05-16] MEDS: EZETIMIBE 10MG TABLET (ZETIA) PO SCH (09:18)
[2023-05-16] MEDS: MIRALAX *UNIT DOSE* 17GM PACKET PO PRN (15:09)
[2023-05-16 17:44] VITALS: BP 135/61; TEMP 98.1; O2SAT 92
[2023-05-16] MEDS: ARTIFICIAL TEARS DROPS 15ML BTL (VISINE DRY RELIEF) OU PRN (20:04)
[2023-05-16] MEDS: GABAPENTIN 400MG CAP PO SCH (20:05)
[2023-05-16] MEDS: clonazePAM 1 MG TAB PO SCH (20:06)
[2023-05-16] MEDS: SENOKOT S TAB PO SCH (20:06)
[2023-05-16] MEDS: ROSUVASTATIN 10 MG TAB (CRESTOR) PO SCH (20:06)
[2023-05-16] MEDS ORDERED: OLANZapine 10 MG TAB PO SCH (21:00)
[2023-05-17] MEDS: LEVOTHYROXINE 50MCG TABLET (0.05MG) PO SCH (05:40)
[2023-05-17 06:46] VITALS: BP 131/67; TEMP 98.5; O2SAT 94
[2023-05-17] MEDS: FLUTICASONE PROP 0.05% NASAL SPRAY 16 GM (FLONASE) SCH (08:32)
[2023-05-17] MEDS: ARTIFICIAL TEARS DROPS 15ML BTL (VISINE DRY RELIEF) OU PRN ×2 (08:32→20:44)
[2023-05-17] MEDS: TAMSULOSIN 0.4 MG CAP PO SCH (08:32)
[2023-05-17] MEDS: MULTIVITAMINS/MINERALS THERAP 1 TAB PO SCH ×2 (08:33→20:40)
[2023-05-17] MEDS: FENOFIBRATE 145MG TABLET (TRICOR) PO SCH (08:33)
[2023-05-17] MEDS: EZETIMIBE 10MG TABLET (ZETIA) PO SCH (08:33)
[2023-05-17] MEDS: ASPIRIN 81MG ENTERIC TABLET PO SCH (08:33)
[2023-05-17] MEDS: VITAMIN D 1,000 INTERNATIONAL UNITS TABLET PO SCH (08:33)
[2023-05-17] MEDS: DIVALPROEX 125 MG TAB PO SCH (08:33)
[2023-05-17] MEDS: ACETAMINOPHEN TAB 650MG DOSE (2X325MG) PO PRN (08:39)
[2023-05-17] MEDS ORDERED: OLANZapine 5 MG TAB PO SCH (09:00)
[2023-05-17] MEDS ORDERED: DIVALPROEX 125 MG TAB PO ONE (10:00)
[2023-05-17 16:32] VITALS: BP 128/65; TEMP 98.6; O2SAT 95
[2023-05-17] MEDS: DIVALPROEX 250MG TAB PO SCH (20:40)
[2023-05-17] MEDS: ROSUVASTATIN 10 MG TAB (CRESTOR) PO SCH (20:40)
[2023-05-17] MEDS: clonazePAM 1 MG TAB PO SCH (20:40)
[2023-05-17] MEDS: GABAPENTIN 400MG CAP PO SCH (20:40)
[2023-05-17] MEDS: SENOKOT S TAB PO SCH (20:45)
[2023-05-18] MEDS: LEVOTHYROXINE 50MCG TABLET (0.05MG) PO SCH (05:50)
[2023-05-18 06:36] VITALS: BP 123/70; TEMP 98; O2SAT 95
[2023-05-18] MEDS: TAMSULOSIN 0.4 MG CAP PO SCH (08:11)
[2023-05-18] MEDS: EZETIMIBE 10MG TABLET (ZETIA) PO SCH (08:11)
[2023-05-18] MEDS: ARTIFICIAL TEARS DROPS 15ML BTL (VISINE DRY RELIEF) OU PRN (08:11)
[2023-05-18] MEDS: DIVALPROEX 250MG TAB PO SCH (08:11)
[2023-05-18] MEDS: ASPIRIN 81MG ENTERIC TABLET PO SCH (08:11)
[2023-05-18] MEDS: MULTIVITAMINS/MINERALS THERAP 1 TAB PO SCH (08:11)
[2023-05-18] MEDS: FENOFIBRATE 145MG TABLET (TRICOR) PO SCH (08:11)
[2023-05-18] MEDS: VITAMIN D 1,000 INTERNATIONAL UNITS TABLET PO SCH (08:11)
[2023-05-18] MEDS: FLUTICASONE PROP 0.05% NASAL SPRAY 16 GM (FLONASE) SCH (08:11)
[2023-05-18] MEDS ORDERED: DEPA250T32 PO (10:40)
== END 2023-05-18 12:17 | disposition home or self-care (01) | DRG 885 ==
LOC: M ED 10:51 → M ED INP 16:58 → M PSY 23:19
PROVIDERS: ADMIT Student in an Organized Health Care Education/Training Program; ATTEND Student in an Organized Health Care Education/Training Program
DX: F31.9 Bipolar disorder, unspecified (principal); E03.9 Hypothyroidism, unspecified; E11.9 Type 2 diabetes mellitus without complications; M54.16 Radiculopathy, lumbar region; G89.29 Other chronic pain; K21.9 Gastro-esophageal reflux disease without esophagitis; E78.5 Hyperlipidemia, unspecified; G47.00 Insomnia, unspecified; R51.9 Headache, unspecified; N40.1 Benign prostatic hyperplasia with lower urinary tract symptoms; K59.00 Constipation, unspecified; Z62.810 Personal history of physical and sexual abuse in childhood; Z79.82 Long term (current) use of aspirin; Z79.890 Hormone replacement therapy; Z79.899 Other long term (current) drug therapy; Z88.0 Allergy status to penicillin; Z79.84 Long term (current) use of oral hypoglycemic drugs

== ENCOUNTER → 2024-06-27 | Outpatient (CLI) | payer OTHER ==
[~2024-06-27] MED LIST changes: +ARTIDRO4 OU; +DEPA250T32 PO; +DEXT1TAB19 PO; +FLUT1BLS3 INH; +META28.32 PO; -MIRA1POW3 PO; +MIRA33506 PO; -ROSU40TA4 PO; +ROSU40TA81 PO; +SENN-130 PO; +SENN-23 PO; +SENN1TAB85 PO; -SIME180C25 PO; +SIME1CAP4 PO
== END ==
LOC: M SLEEP 11:20
PROVIDERS: ATTEND Internal Medicine
DX: G47.33 Obstructive sleep apnea (adult) (pediatric) (principal)

== ENCOUNTER → 2024-07-01 | Outpatient (CLI) | payer OTHER | LOC: M RAD 13:26 | PROVIDERS: ATTEND Internal Medicine | DX: J32.9 Chronic sinusitis, unspecified (principal) ==

== ENCOUNTER → 2024-12-29 | Outpatient (CLI) | payer OTHER ==
[~2024-12-29] MED LIST changes: -DEPA250T32 PO; +DIVA-65 PO; -FLOM0.4C39 PO; +ISOVUE-370 76% 100 ML VIAL As Ordered ONE; -LEVO50CA PO; +LEVO50CA2 PO; +TAMS-18 PO
== END ==
LOC: M RAD 12:55
PROVIDERS: ATTEND Internal Medicine
DX: R10.9 Unspecified abdominal pain (principal); N20.0 Calculus of kidney; N28.1 Cyst of kidney, acquired; K40.90 Unilateral inguinal hernia, without obstruction or gangrene, not specified as recurrent; M16.0 Bilateral primary osteoarthritis of hip
CPT/HCPCS: 74177; Q9967